=== PATIENT | female | born 1975 | race Caucasian/White ===

== ENCOUNTER 2022-06-16 11:57 | Emergency (ER) | payer BC ==
[~2022-06-16] VITALS: Ht 167.6 cm; Wt 86.2 kg
[2022-06-16 12:10] VITALS: BP_SYST 124
[2022-06-16] MEDS ORDERED: ONDANSETRON 4 MG ODT TAB PO ONE (12:30)
[2022-06-16] MEDS ORDERED: KETOROLAC TROMETHAMINE 60 MG/2 ML VIAL IM ONE (12:30)
[2022-06-16 12:46] LABS: BASOPHILS # (AUTO) 0.1 K/uL (0.0-0.2); BASOPHILS % (AUTO) 0.6 % (0.0-2.0); EOSINOPHILS # (AUTO) 0.2 K/uL (0.0-0.4); EOSINOPHILS % (AUTO) 2.1 % (0.0-4.0); HEMATOCRIT 43.9 % (36-48); HEMOGLOBIN 14.8 g/dL (12.0-16.0); LYMPHOCYTES # (AUTO) 2.6 K/uL (1.0-5.5); LYMPHOCYTES % (AUTO) 28.4 % (20.5-51.5); MEAN CORPUSCULAR HEMOGLOBIN 31 pg (27-31); MEAN CORPUSCULAR HGB CONC 34 % (32-36); MEAN CORPUSCULAR VOLUME 91 fL (79.0-98.0); MONOCYTES # (AUTO) 0.7 K/uL (0.0-1.0); MONOCYTES % (AUTO) 7.9 % (1.7-9.3); NEUTROPHILS # (AUTO) 5.6 K/uL (1.8-7.7); PLATELET COUNT (AUTO) 302 K/uL (130-430); RED BLOOD CELL COUNT(AUTO) 4.83 MIL/uL (4.2-6.2); RED CELL DISTRIBUTION WIDTH 13.3 % (9.0-15.0); WHITE BLOOD COUNT (AUTO) 9.2 K/uL (4.8-10.8)
--- NOTE | 2022-06-16 12:46 | NUR ---
PT TO CT WITH RADIOLOGY, HCG NEG.
--- NOTE | 2022-06-16 12:56 | NUR ---
ER at bedside examining patient.
[2022-06-16 12:59] LABS: ANION GAP 8 (5-15); CALCIUM 8.8 mg/dL (8.4-11.0); CHLORIDE 101 mmol/L (98-107); CREATININE 0.97 mg/dL (0.55-1.30); GFR AFRICAN AMERICAN 80 mL/min (>90); GLUCOSE 95 mg/dL (70-99); UREA NITROGEN, BLOOD 14 mg/dL (8-21)
--- NOTE | 2022-06-16 13:00 | NUR ---
PT BIB SPOUSE FROM HOME CC MIGRAINE HEADACHE AND NAUSEA. PT DENIES SOB, DENIES NEURO DEFECIT, COMPLAINS OF LIGHT SENSITIVITY.
[2022-06-16 13:03] LABS: ALANINE AMINOTRANSFERASE 37 U/L (12-78); ASPARTATE AMINOTRANSFERASE 18 U/L (10-37); TOTAL BILIRUBIN 0.4 mg/dL (0.0-1.0)
[2022-06-16 13:06] LABS: C-REACTIVE PROTEIN QUANT < 0.2 mg/dL (0-0.5)
[2022-06-16 13:47] LABS: ERYTHROCYTE SEDIMENTATION RATE 8 MM/HR (0-20)
[2022-06-16] MEDS ORDERED: IBUP-1969 PO (14:25)
[2022-06-16] MEDS ORDERED: HYDR-3917 PO (14:25)
--- NOTE | 2022-06-16 14:59 | NUR ---
Patient given written and verbal discharge instructions and verbalizes understanding. ER MD discussed with patient the results and treatment provided. Patient in stable condition. ID arm band removed. Patient educated on pain management and to follow up with PMD. Opportunity for questions provided and answered. Medication side effect fact sheet provided.
[2022-06-16 15:08] VITALS: BP_SYST 124
== END 2022-06-16 15:08 | disposition home or self-care (01) ==
LOC: SED 11:57
DX: R51.9 Headache, unspecified (principal); R11.2 Nausea with vomiting, unspecified; Z88.0 Allergy status to penicillin; Z79.899 Other long term (current) drug therapy
CPT/HCPCS: 99284; 70450; 80053; 85025; 85651; 86140; 36415; 76376; 81025; 96372; Q0162; J1885